=== PATIENT | male | born 1980 | race Two or more races ===

== ENCOUNTER 2021-05-07 01:47 | Inpatient (IN) | payer MEDICAID ==
[~2021-05-07] VITALS: Ht 182.9 cm; Wt 113.6 kg
[~2021-05-07 01:47] MED LIST: AMOX1TAB15 PO; NO HOME MEDS
[2021-05-07] MEDS ORDERED: normal saline 1000ML IV soln IVB ONE (02:00)
[2021-05-07] MEDS ORDERED: ondansetron/PF 4mg/2ml inj IV ONE ×2 (02:00→03:15)
[2021-05-07 02:58] LABS: BASOPHILS % (AUTO) 0.3 % (0-1); EOSINOPHILS # (AUTO) 0.1 X10'3 (0-0.9); EOSINOPHILS % (AUTO) 0.7 % (0-6); HEMATOCRIT 39.3 % (42.0-52.0); HEMOGLOBIN 13.4 g/dl (14.0-17.9); LYMPHOCYTES # (AUTO) 1.4 X10'3 (1.1-4.8); LYMPHOCYTES % (AUTO) 15.8 % (21-51); MEAN CORPUSCULAR HEMOGLOBIN 28.4 PG (27.0-31.0); MEAN CORPUSCULAR HGB CONC 34.3 g/dL (33.0-36.5); MEAN CORPUSCULAR VOLUME 82.9 FL (78-98); MEAN PLATELET VOLUME 7.6 FL (7.4-10.4); MONOCYTES # (AUTO) 0.7 X10'3 (0-0.9); MONOCYTES % (AUTO) 7.7 % (2-12); NEUTROPHILS # (AUTO) 6.6 X10'3 (1.8-7.7); NEUTROPHILS % (AUTO) 75.5 % (42-75); PLATELET COUNT 308 X10'3 (140-440); RED BLOOD COUNT 4.73 X10'6 (4.70-6.10); RED CELL DISTRIBUTION WIDTH 13.1 % (11.5-14.5); WHITE BLOOD COUNT 8.8 X10'3 (4.5-11.0)
[2021-05-07] MEDS: morphine 4 MG/ML inj SYRINge IV PRN ×6 (03:04→23:17)
[2021-05-07 03:10] LABS: ALANINE AMINOTRANSFERASE 31 U/L (12-78); ALBUMIN 3.7 G/DL (3.4-5.0); ALBUMIN/GLOBULIN RATIO 0.9 (1.1-1.5); ALKALINE PHOSPHATASE 85 IU/L (46-116); ANION GAP 8 (8-16); ASPARTATE AMINO TRANSFERASE 22 U/L (10-37); BILIRUBIN,TOTAL 0.3 MG/DL (0.1-1.0); BLOOD UREA NITROGEN 16 MG/DL (7-18); BUN/CREATININE RATIO 15.7 (5.4-32.0); CALCIUM 8.7 MG/DL (8.5-10.1); CHLORIDE 101 MMOL/L (99-107); CREATININE 1.02 MG/DL (0.60-1.10); GLUCOSE 150 MG/DL (70-104); POTASSIUM 3.3 MMOL/L (3.5-5.1); SODIUM 136 MMOL/L (135-145); TOTAL CARBON DIOXIDE 27.3 MMOL/L (24-32); eGFR 81 ML/MIN
[2021-05-07 03:10] LABS: CLARITY,URINE CLEAR (Clear); COLOR,URINE YELLOW (Yellow); GLUCOSE, URINE NEGATIVE (Neg); KETONES,URINE NEGATIVE (Neg); LEUKOCYTE ESTERASE ,URINE NEGATIVE (Neg); NITRITES, URINE NEGATIVE (Neg); OCCULT BLOOD,URINE NEGATIVE (Neg); PH,URINE 6.5 (4.8-8.0); PROTEIN,URINE NEGATIVE (Neg); UROBILINOGEN,URINE 0.2 E.U/dL (0.2-1.0)
[2021-05-07 03:13] LABS: LIPASE 89 U/L (73-393)
[2021-05-07 03:15] LABS: UA COLLECTION TYPE CLN CATCH MIDSTREAM
[2021-05-07] MEDS ORDERED: magnesium 2GM in 50ml NS 50 ML IV PRN (03:50)
[2021-05-07] MEDS ORDERED: normal saline 1000ml 1,000 ML IV SCH (03:50)
[2021-05-07] MEDS ORDERED: HYDROcodone/acetaminophen 5mg/325mg tablet PO PRN (03:50)
[2021-05-07] MEDS ORDERED: acetaminophen 325mg tablet PO PRN ×2 (03:50)
[2021-05-07] MEDS ORDERED: ondansetron/PF 4mg/2ml inj IV PRN (03:50)
[2021-05-07] MEDS ORDERED: magnesium Cl slow-release 64mg tablet PO PRN (03:50)
[2021-05-07] MEDS ORDERED: mag hydrox/Alum hydrox/simeth 30ml oral suspension PO PRN (03:50)
[2021-05-07] MEDS ORDERED: potassium Cl 20 mEq SR tablet PO PRN ×2 (03:50)
[2021-05-07] MEDS ORDERED: morphine 2 MG/ML inj. syringe IV PRN ×2 (03:50)
[2021-05-07] MEDS ORDERED: magnesium 4gm in 100ml NS 100 ML IV PRN (03:50)
[2021-05-07] MEDS ORDERED: potassium CL 10mEq/100ml bag 100 ML IV PRN (03:50)
--- NOTE | 2021-05-07 06:38 | NUR ---
Report received from JIN Cagle
[2021-05-07 07:01] LABS: PARTIAL THROMBOPLASTIN TIME 32 SECONDS (22-32)
--- NOTE | 2021-05-07 07:33 | NUR ---
Patient's mother called for update; patient gave consent.
[2021-05-07] MEDS: K and/or MAG REPLACEMENT MC SCH ×2 (08:00→20:00)
[2021-05-07] MEDS: heparin, porcine 5000 units/ml vial SQ SCH ×2 (08:00→20:12)
[2021-05-07] MEDS: piperacillin/tazo 3.375gm/50ml 50 ML IV SCH ×3 (08:35→23:17)
[2021-05-07] MEDS ORDERED: potassium Cl 20 mEq SR tablet PO STA (10:02)
[2021-05-07] MEDS: potassium Cl 20mEq in NS 1,000 ML IV SCH ×2 (10:39→20:10)
[2021-05-07 10:59] VITALS: BP 127/62
--- NOTE | 2021-05-07 11:11 | NUR ---
Paged for EKG
--- NOTE | 2021-05-07 18:29 | NUR ---
Patient in room [facility] 354. I have received report from Aileen ABDI and had the opportunity to ask questions and assume patient care.
[2021-05-07 20:00] VITALS: BP 143/86
[2021-05-07] MEDS: lactobacillus rhamnosus 10,000 MMU CELLS/CAPSULE PO SCH (20:11)
[2021-05-07] MEDS ORDERED: temazepam 15mg capsule PO PRN (21:00)
[2021-05-07 23:40] VITALS: BP 110/62
[2021-05-08] VITALS (20 sets, daily range): BP systolic 116–139; BP diastolic 64–86
[2021-05-08] MEDS: potassium Cl 20mEq in NS 1,000 ML IV SCH ×3 (04:00→19:06)
[2021-05-08] MEDS: morphine 4 MG/ML inj SYRINge IV PRN ×2 (05:29→08:08)
--- NOTE | 2021-05-08 06:07 | NUR ---
Problems reprioritized. Patient report given, questions answered & plan of care reviewed with Rosa Isela ABDI.
[2021-05-08 06:15] LABS: BASOPHILS % (AUTO) 0.2 % (0-1); EOSINOPHILS # (AUTO) 0.1 X10'3 (0-0.9); HEMATOCRIT 41.1 % (42.0-52.0); LYMPHOCYTES # (AUTO) 1.7 X10'3 (1.1-4.8); LYMPHOCYTES % (AUTO) 16.7 % (21-51); MEAN CORPUSCULAR HEMOGLOBIN 28.5 PG (27.0-31.0); MEAN CORPUSCULAR HGB CONC 34.1 g/dL (33.0-36.5); MEAN CORPUSCULAR VOLUME 83.5 FL (78-98); MEAN PLATELET VOLUME 7.9 FL (7.4-10.4); NEUTROPHILS # (AUTO) 7.5 X10'3 (1.8-7.7); NEUTROPHILS % (AUTO) 72.1 % (42-75); PLATELET COUNT 285 X10'3 (140-440); RED BLOOD COUNT 4.93 X10'6 (4.70-6.10); RED CELL DISTRIBUTION WIDTH 13.2 % (11.5-14.5); WHITE BLOOD COUNT 10.4 X10'3 (4.5-11.0)
--- NOTE | 2021-05-08 06:30 | NUR ---
Patient in room [facility] 354. I have received report from GERTRUDE ABDI and had the opportunity to ask questions and assume patient care.
[2021-05-08 06:31] LABS: ALANINE AMINOTRANSFERASE 22 U/L (12-78); ALBUMIN 3.3 G/DL (3.4-5.0); ALBUMIN/GLOBULIN RATIO 0.8 (1.1-1.5); ALKALINE PHOSPHATASE 73 IU/L (46-116); ANION GAP 7 (8-16); ASPARTATE AMINO TRANSFERASE 21 U/L (10-37); BILIRUBIN,TOTAL 0.8 MG/DL (0.1-1.0); BLOOD UREA NITROGEN 7 MG/DL (7-18); BUN/CREATININE RATIO 7.5 (5.4-32.0); CHLORIDE 102 MMOL/L (99-107); CREATININE 0.93 MG/DL (0.60-1.10); GLUCOSE 113 MG/DL (70-104); SODIUM 135 MMOL/L (135-145); TOTAL CARBON DIOXIDE 26.2 MMOL/L (24-32); TOTAL PROTEIN 7.7 G/DL (6.4-8.2); eGFR 90 ML/MIN
[2021-05-08] MEDS: heparin, porcine 5000 units/ml vial SQ SCH ×2 (06:50→19:57)
[2021-05-08] MEDS: K and/or MAG REPLACEMENT MC SCH ×2 (07:55→20:00)
[2021-05-08] MEDS: lactobacillus rhamnosus 10,000 MMU CELLS/CAPSULE PO SCH ×2 (07:55→19:57)
[2021-05-08] MEDS: piperacillin/tazo 3.375gm/50ml 50 ML IV SCH ×2 (08:03→19:53)
[2021-05-08] MEDS ORDERED: ondansetron/PF 4mg/2ml inj IV PRN (14:45)
[2021-05-08] MEDS ORDERED: ringers solution, lacted 1,000 ML IV SCH (14:45)
[2021-05-08] MEDS ORDERED: morphine 4 MG/ML inj SYRINge IV PRN (14:45)
[2021-05-08] MEDS ORDERED: labetalol 20mg/4ml (5mg/ml) syringe IV PRN (14:45)
[2021-05-08] MEDS ORDERED: hydrALAZINE 20mg/ml inj. IV PRN (14:45)
[2021-05-08] MEDS ORDERED: morphine 2 MG/ML inj. syringe IV PRN (14:45)
[2021-05-08] MEDS ORDERED: fentaNYL/PF 50MCG/1 ML 2ML syringe IV PRN ×2 (14:45)
[2021-05-08] MEDS ORDERED: BUPIVAcaine/PF 2.5 mg/ml (0.25%) 30ml vial ONE (14:57)
[2021-05-08] MEDS ORDERED: fentaNYL/PF 50MCG/1 ML 2ML syringe ONE ×3 (15:27→17:01)
[2021-05-08] MEDS ORDERED: midazolam 1 mg/ML 2ml injection ONE (15:28)
[2021-05-08] MEDS ORDERED: ondansetron/PF 4mg/2ml inj ONE (15:36)
[2021-05-08] MEDS ORDERED: rocuronium 10mg/ml inj IV ONE ×2 (15:36→16:34)
--- NOTE | 2021-05-08 17:19 | NUR ---
Received from OR via , accompanied by Anesthesiologist ROSS and report given by Anesthesiolgist. AWAKENS TO VOICE. VITALS STABLE. DRESSINGS DI. ROOSEVELT PAIN. ABD SOFT.
--- NOTE | 2021-05-08 18:33 | NUR ---
Problems reprioritized. Patient report given, questions answered & plan of care reviewed with JESSIE ROMAN RN.
--- NOTE | 2021-05-08 18:35 | NUR ---
I have received report from OSCAR ABDI and had the opportunity to ask questions and assume patient care. PATIENT IN OR/ RECOVERY AT THIS TIME FOR LAP TOM OR OPEN TOM.
--- NOTE | 2021-05-08 18:49 | NUR ---
Report called to receiving nurse. Transferred via BED Belongings . Special Issues communicated to receiving nurse.AWAKE AND ORIENTED. VITALS STABLE. DRESSINGS DI. ROOSEVELT PAIN. TO SURGICAL RM 354C AT THIS TIME.
--- NOTE | 2021-05-08 19:00 | NUR ---
PATIENT CAME BACK TO ROOM 354C FROM RECOVERY ROOM AFTER LAP TOM WAS DONE BY DR. BLANCHARD. PLACED COMFORTABLE IN BED. VITAL SIGNS MONITORED PER POST OP FREQUENT VITALS.
[2021-05-08] MEDS: morphine 2 MG/ML inj. syringe IV PRN (19:55)
[2021-05-09] VITALS: BP 125/68
[2021-05-09] MEDS: morphine 2 MG/ML inj. syringe IV PRN ×2 (01:27→05:43)
[2021-05-09] MEDS: piperacillin/tazo 3.375gm/50ml 50 ML IV SCH ×3 (01:28→17:13)
[2021-05-09 04:00] VITALS: BP 107/80
[2021-05-09] MEDS: potassium Cl 20mEq in NS 1,000 ML IV SCH (05:39)
[2021-05-09 06:02] LABS: BASOPHILS % (AUTO) 0.1 % (0-1); EOSINOPHILS % (AUTO) 0.1 % (0-6); HEMATOCRIT 39.3 % (42.0-52.0); HEMOGLOBIN 13.3 g/dl (14.0-17.9); LYMPHOCYTES # (AUTO) 1.3 X10'3 (1.1-4.8); LYMPHOCYTES % (AUTO) 10.2 % (21-51); MEAN CORPUSCULAR HGB CONC 33.8 g/dL (33.0-36.5); MEAN CORPUSCULAR VOLUME 82.8 FL (78-98); MEAN PLATELET VOLUME 7.7 FL (7.4-10.4); MONOCYTES % (AUTO) 8.2 % (2-12); NEUTROPHILS # (AUTO) 10.1 X10'3 (1.8-7.7); NEUTROPHILS % (AUTO) 81.4 % (42-75); PLATELET COUNT 286 X10'3 (140-440); RED BLOOD COUNT 4.75 X10'6 (4.70-6.10); RED CELL DISTRIBUTION WIDTH 13.2 % (11.5-14.5); WHITE BLOOD COUNT 12.5 X10'3 (4.5-11.0)
[2021-05-09 06:30] LABS: ALANINE AMINOTRANSFERASE 55 U/L (12-78); ALBUMIN 3.1 G/DL (3.4-5.0); ALBUMIN/GLOBULIN RATIO 0.7 (1.1-1.5); ANION GAP 9 (8-16); ASPARTATE AMINO TRANSFERASE 52 U/L (10-37); BILIRUBIN,TOTAL 0.7 MG/DL (0.1-1.0); BLOOD UREA NITROGEN 9 MG/DL (7-18); BUN/CREATININE RATIO 9.1 (5.4-32.0); CALCIUM 8.8 MG/DL (8.5-10.1); CHLORIDE 103 MMOL/L (99-107); CREATININE 0.99 MG/DL (0.60-1.10); GLUCOSE 133 MG/DL (70-104); POTASSIUM 3.9 MMOL/L (3.5-5.1); SODIUM 140 MMOL/L (135-145); TOTAL CARBON DIOXIDE 27.7 MMOL/L (24-32); TOTAL PROTEIN 7.7 G/DL (6.4-8.2); eGFR 84 ML/MIN
--- NOTE | 2021-05-09 06:30 | NUR ---
Problems reprioritized. Patient report given, questions answered & plan of care reviewed with FREDRICK ABDI.
[2021-05-09 06:31] LABS: ALKALINE PHOSPHATASE 62 IU/L (46-116)
--- NOTE | 2021-05-09 07:08 | NUR ---
Patient in room [facility] 354. I have received report from Juliann Humphreys RN and had the opportunity to ask questions and assume patient care.
[2021-05-09 07:36] VITALS: BP 139/72
[2021-05-09] MEDS: K and/or MAG REPLACEMENT MC SCH ×2 (08:00→20:00)
[2021-05-09] MEDS: lactobacillus rhamnosus 10,000 MMU CELLS/CAPSULE PO SCH ×2 (08:59→19:37)
[2021-05-09] MEDS: heparin, porcine 5000 units/ml vial SQ SCH ×2 (09:00→19:38)
[2021-05-09] MEDS: HYDROcodone/acetaminophen 10/325mg tab PO PRN ×2 (09:01→19:38)
[2021-05-09 11:00] VITALS: BP 119/68
[2021-05-09] MEDS ORDERED: HYDR-3965 PO (11:33)
--- NOTE | 2021-05-09 18:48 | NUR ---
Problems reprioritized. Patient report given, questions answered & plan of care reviewed with Juliann Humphreys RN.
--- NOTE | 2021-05-09 18:50 | NUR ---
Patient in room [facility] 354. I have received report from FREDRICK ABDI and had the opportunity to ask questions and assume patient care.
[2021-05-09 20:00] VITALS: BP 104/81
[2021-05-10] VITALS: BP 131/76
[2021-05-10] MEDS: piperacillin/tazo 3.375gm/50ml 50 ML IV SCH ×3 (00:41→15:59)
[2021-05-10] MEDS: HYDROcodone/acetaminophen 10/325mg tab PO PRN ×3 (00:46→20:13)
[2021-05-10 06:08] LABS: BASOPHILS % (AUTO) 0.2 % (0-1); EOSINOPHILS # (AUTO) 0.1 X10'3 (0-0.9); EOSINOPHILS % (AUTO) 1.3 % (0-6); HEMATOCRIT 39.4 % (42.0-52.0); HEMOGLOBIN 13.1 g/dl (14.0-17.9); LYMPHOCYTES # (AUTO) 2.7 X10'3 (1.1-4.8); LYMPHOCYTES % (AUTO) 23.8 % (21-51); MEAN CORPUSCULAR HEMOGLOBIN 27.9 PG (27.0-31.0); MEAN CORPUSCULAR HGB CONC 33.4 g/dL (33.0-36.5); MEAN CORPUSCULAR VOLUME 83.7 FL (78-98); MEAN PLATELET VOLUME 7.8 FL (7.4-10.4); MONOCYTES # (AUTO) 1.1 X10'3 (0-0.9); MONOCYTES % (AUTO) 9.8 % (2-12); NEUTROPHILS # (AUTO) 7.3 X10'3 (1.8-7.7); NEUTROPHILS % (AUTO) 64.9 % (42-75); PLATELET COUNT 285 X10'3 (140-440); RED BLOOD COUNT 4.71 X10'6 (4.70-6.10); RED CELL DISTRIBUTION WIDTH 13.2 % (11.5-14.5); WHITE BLOOD COUNT 11.2 X10'3 (4.5-11.0)
[2021-05-10 06:30] LABS: ALANINE AMINOTRANSFERASE 58 U/L (12-78); ALBUMIN/GLOBULIN RATIO 0.6 (1.1-1.5); ALKALINE PHOSPHATASE 62 IU/L (46-116); ANION GAP 4 (8-16); ASPARTATE AMINO TRANSFERASE 37 U/L (10-37); BILIRUBIN,TOTAL 0.8 MG/DL (0.1-1.0); BLOOD UREA NITROGEN 10 MG/DL (7-18); BUN/CREATININE RATIO 9.1 (5.4-32.0); CHLORIDE 99 MMOL/L (99-107); GLUCOSE 97 MG/DL (70-104); POTASSIUM 3.6 MMOL/L (3.5-5.1); SODIUM 134 MMOL/L (135-145); TOTAL CARBON DIOXIDE 30.7 MMOL/L (24-32); eGFR 74 ML/MIN
--- NOTE | 2021-05-10 06:30 | NUR ---
Problems reprioritized. Patient report given, questions answered & plan of care reviewed with NEONTAIE RN.
--- NOTE | 2021-05-10 06:30 | NUR ---
Patient in room [facility] 354. I have received report from JIN Cota and had the opportunity to ask questions and assume patient care.
[2021-05-10 07:00] VITALS: BP 131/83
[2021-05-10] MEDS: K and/or MAG REPLACEMENT MC SCH ×2 (08:00→20:00)
[2021-05-10] MEDS: heparin, porcine 5000 units/ml vial SQ SCH ×2 (08:29→20:17)
[2021-05-10] MEDS: lactobacillus rhamnosus 10,000 MMU CELLS/CAPSULE PO SCH ×2 (08:29→20:14)
[2021-05-10] MEDS ORDERED: HYDROcodone/acetaminophen 10/325mg tab PO PRN (10:05)
[2021-05-10 11:30] VITALS: BP 141/80
[2021-05-10 20:00] VITALS: BP 119/80
[2021-05-10] MEDS: docusate sod 100mg capsule PO SCH (20:14)
[2021-05-11] VITALS: BP 115/76
[2021-05-11] MEDS: piperacillin/tazo 3.375gm/50ml 50 ML IV SCH ×2 (00:09→08:55)
--- NOTE | 2021-05-11 06:42 | NUR ---
Pt tolerating pain better and ambulated as tolerated.Received Drury 10 once this shift.Report given to Heather ABDI
[2021-05-11 06:56] LABS: BASOPHILS % (AUTO) 0.5 % (0-1); EOSINOPHILS # (AUTO) 0.2 X10'3 (0-0.9); HEMATOCRIT 39.8 % (42.0-52.0); HEMOGLOBIN 13.5 g/dl (14.0-17.9); MEAN CORPUSCULAR HEMOGLOBIN 28.2 PG (27.0-31.0); MEAN CORPUSCULAR VOLUME 83.1 FL (78-98); MEAN PLATELET VOLUME 7.8 FL (7.4-10.4); MONOCYTES # (AUTO) 0.9 X10'3 (0-0.9); MONOCYTES % (AUTO) 10.7 % (2-12); NEUTROPHILS # (AUTO) 5.3 X10'3 (1.8-7.7); NEUTROPHILS % (AUTO) 62.8 % (42-75); PLATELET COUNT 320 X10'3 (140-440); RED BLOOD COUNT 4.79 X10'6 (4.70-6.10); RED CELL DISTRIBUTION WIDTH 13.2 % (11.5-14.5); WHITE BLOOD COUNT 8.5 X10'3 (4.5-11.0)
[2021-05-11 07:00] VITALS: BP 119/76
[2021-05-11 07:13] LABS: ALANINE AMINOTRANSFERASE 48 U/L (12-78); ALBUMIN/GLOBULIN RATIO 0.6 (1.1-1.5); ALKALINE PHOSPHATASE 65 IU/L (46-116); ANION GAP 8 (8-16); ASPARTATE AMINO TRANSFERASE 21 U/L (10-37); BILIRUBIN,TOTAL 0.9 MG/DL (0.1-1.0); BLOOD UREA NITROGEN 11 MG/DL (7-18); BUN/CREATININE RATIO 10.2 (5.4-32.0); CALCIUM 9.4 MG/DL (8.5-10.1); CHLORIDE 100 MMOL/L (99-107); CREATININE 1.08 MG/DL (0.60-1.10); GLUCOSE 104 MG/DL (70-104); POTASSIUM 3.7 MMOL/L (3.5-5.1); SODIUM 138 MMOL/L (135-145); TOTAL PROTEIN 8.3 G/DL (6.4-8.2); eGFR 76 ML/MIN
[2021-05-11] MEDS: K and/or MAG REPLACEMENT MC SCH (08:00)
[2021-05-11] MEDS: lactobacillus rhamnosus 10,000 MMU CELLS/CAPSULE PO SCH (08:54)
[2021-05-11] MEDS: docusate sod 100mg capsule PO SCH (08:54)
[2021-05-11] MEDS: heparin, porcine 5000 units/ml vial SQ SCH (08:55)
== END 2021-05-11 11:35 | disposition home or self-care (01) | DRG 263 ==
LOC: ER 01:48 → ED HOLD 03:56 → UNDOADMIN 03:56 → ED HOLD 10:15 → SUR 3N 10:15
PROVIDERS: ADMIT Internal Medicine; ATTEND Internal Medicine
PROC: 0FT44ZZ Resection of Gallbladder, Percutaneous Endoscopic Approach (ICD-10-PCS; principal; 2021-05-08 15:17)
DX: K80.62 Calculus of gallbladder and bile duct with acute cholecystitis without obstruction (principal); Z20.822 Contact with and (suspected) exposure to COVID-19
CPT/HCPCS: 36415; 71045; 74176; 80053; 81003; 83605; 83690; 84484; 85025; 85610; 85730; 87040; 87081; 87635; 93005; 96374; 99285; A4215; A4618; A7000; C9803; G0378; J1644; J2250; J2270; J2405; J2543; J3010; J3480; J3490; J7030; J7120